=== PATIENT | female | born 1960 | race Caucasian/White ===

== ENCOUNTER 2017-08-24 09:16 | Inpatient (IN) | payer OTHER ==
[2017-08-24] MEDS: IBUPROFEN 800 MG TAB PO (10:34)
[2017-08-24] MEDS: morphine 4 MG/ML VIAL IV ×2 (10:34→13:10)
[2017-08-24] MEDS: ONDANSETRON 4 MG INJ IV (10:34)
[2017-08-24 10:35] LABS: ADD MAN DIFF? NO
[2017-08-24] MEDS: SODIUM CHLORIDE 0.9% 1L BAG IV* (10:35)
[2017-08-24 10:41] LABS: BASOPHIL # 0.1 10^3/ul (0.0-0.1); BASOPHILS % 0.3 % (0.0-2.0); EOSINOPHILS % 0.1 % (0.0-7.0); HEMOGLOBIN 14.6 g/dl (12.0-16.0); LYMPHOCYTES % 6.6 % (15.0-51.0); MEAN CORPUSCULAR HEMOGLOBIN 30.9 pg (29.0-33.0); MEAN CORPUSCULAR HGB CONC 34.8 g/dl (32.0-37.0); MEAN CORPUSCULAR VOLUME 88.8 fl (82.0-101.0); MONOCYTE # 0.8 10^3/ul (0.3-0.9); MONOCYTES % 4.8 % (0.0-11.0); NEUTROPHIL # 13.6 10^3/ul (1.6-7.5); NEUTROPHILS % 87.6 % (39.0-77.0); PLATELET COUNT 287 10^3/UL (140-415); RED BLOOD COUNT 4.73 10^6/ul (4.20-5.40); RED CELL DISTRIBUTION WIDTH 11.9 % (11.5-14.5)
[2017-08-24 10:41] LABS: WHITE BLOOD COUNT 15.5 10^3/ul (4.8-10.8)
[2017-08-24 10:59] LABS: ALANINE AMINOTRANSFERASE 64 IU/L (13-69); ALBUMIN 4.7 g/dl (3.3-4.9); ALBUMIN/GLOBULIN RATIO 1.14; ALKALINE PHOSPHATASE 134 IU/L (42-121); ANION GAP 19 (8-16); ASPARTATE AMINO TRANSFERASE 35 IU/L (15-46); BILIRUBIN,INDIRECT 0.4 mg/dl (0-1.1); BILIRUBIN,TOTAL 0.4 mg/dl (0.2-1.3); BLOOD UREA NITROGEN 16 mg/dl (7-20); CALCIUM 9.7 mg/dl (8.4-10.2); CARBON DIOXIDE 29 mmol/L (21-31); CHLORIDE 100 mmol/L (97-110); CREATININE 0.97 mg/dl (0.44-1.00); GLUCOSE 105 mg/dl (70-220); POTASSIUM 3.8 mmol/L (3.5-5.1); SODIUM 144 mmol/L (135-144); TOTAL PROTEIN 8.8 g/dl (6.1-8.1)
[2017-08-24 11:00] LABS: LACTIC ACID 1.6 mmol/L (0.5-2.0)
[2017-08-24 11:03] LABS: INR 0.95; PROTIME 12.8 Sec (11.9-14.9)
[2017-08-24 11:12] LABS: TROPONIN-I < 0.012 ng/ml (0.000-0.120)
[2017-08-24 11:28] LABS: ADD UMIC YES; UR ASCORBIC ACID NEGATIVE (NEGATIVE); UR BILIRUBIN (Dip) NEGATIVE (NEGATIVE); UR BLOOD (Dip) 1+ mg/dL (NEGATIVE); UR CLARITY CLEAR (CLEAR); UR COLOR YELLOW (YELLOW); UR GLUCOSE (Dip) NEGATIVE (NEGATIVE); UR KETONES (Dip) NEGATIVE (NEGATIVE); UR LEUKOCYTE ESTERASE (Dip) TRACE Leu/ul (NEGATIVE); UR NITRITE (Dip) NEGATIVE (NEGATIVE); UR RBC 7 /HPF (0-5); UR SPECIFIC GRAVITY (Dip) 1.013 (1.003-1.030); UR TOTAL PROTEIN (Dip) NEGATIVE (NEGATIVE); UR UROBILINOGEN (Dip) NEGATIVE (NEGATIVE); UR WBC 5 /HPF (0-5)
[2017-08-24] MEDS ORDERED: ACETAMINOPHEN 325 MG TAB PO (13:00)
[2017-08-24] MEDS ORDERED: ONDANSETRON 4 MG INJ IV ×2 (13:00→18:00)
[2017-08-24 13:35] LABS: LACTIC ACID 0.7 mmol/L (0.5-2.0)
[2017-08-24 16:06] LABS: LACTIC ACID 0.6 mmol/L (0.5-2.0)
[2017-08-24 17:12] LABS: CSF RBC 0 /uL (0-0); CSF WBC 4 /cmm (0-10)
[2017-08-24 17:14] LABS: CSF RBC 0 /uL (0-0); CSF WBC 5 /cmm (0-10)
[2017-08-24] MEDS: VANCOMYCIN 1 GM (PMX) 250 ML IVPB (17:44)
[2017-08-24] MEDS: CEFTRIAXONE 1 GM/50 ML (PMX) 50 ML IVPB (17:44)
[2017-08-24] MEDS ORDERED: VANCOMYCIN IV PER PHARMACY XX (18:00)
[2017-08-24] MEDS ORDERED: NACL 0.9% 3 ML SYG IV (18:00)
[2017-08-24] MEDS ORDERED: hydrALAzine 20 MG INJ IV (18:00)
[2017-08-24 18:06] LABS: CSF CLARITY CLEAR; CSF VOLUME 3.5 ml
[2017-08-24 18:06] LABS: CSF COLOR COLORLESS
[2017-08-24 18:07] LABS: CSF#TUBE COUNT TUBE#4; CSF#TUBES REC'D 4
[2017-08-24 18:15] LABS: CSF CLARITY CLEAR; CSF COLOR COLORLESS; CSF VOLUME 3.5 ml; CSF#TUBE COUNT TUBE#1; CSF#TUBES REC'D 4
[2017-08-24 18:19] LABS: TOTAL PROTEIN,CSF 56 mg/dl (12-60)
[2017-08-24 18:19] LABS: GLUCOSE,CSF 63 mg/dl (50-80)
[2017-08-24] MEDS: AMPICILLIN 2 GM/NS (PMX) 100 ML IVPB ×2 (20:03→21:30)
[2017-08-24] MEDS: morphine 2 MG INJ IV (20:13)
[2017-08-24] MEDS: VANCOMYCIN 500MG/NS (PMX) 100 ML IVPB (22:03)
[2017-08-24] MEDS: D5W-0.45 NACL + KCL 20 MEQ 1,000 ML IV (22:04)
[2017-08-24] MEDS: HYDROCODONE/APAP (5/325) TAB PO (22:37)
[2017-08-25] MEDS: morphine 2 MG INJ IV ×2 (01:17→09:05)
[2017-08-25] MEDS: AMPICILLIN 2 GM/NS (PMX) 100 ML IVPB ×4 (01:17→12:59)
[2017-08-25] MEDS: CEFTRIAXONE 2 GM/50 ML (PMX) 50 ML IVPB ×3 (04:38→20:46)
[2017-08-25 05:55] LABS: ADD MAN DIFF? NO
[2017-08-25 06:02] LABS: WHITE BLOOD COUNT 11.8 10^3/ul (4.8-10.8)
[2017-08-25 06:02] LABS: BASOPHILS % 0.3 % (0.0-2.0); EOSINOPHILS # 0.1 10^3/ul (0.0-0.5); EOSINOPHILS % 0.4 % (0.0-7.0); HEMATOCRIT 37.4 % (37.0-47.0); HEMOGLOBIN 12.8 g/dl (12.0-16.0); LYMPHOCYTES # 1.3 10^3/ul (0.8-2.9); LYMPHOCYTES % 10.6 % (15.0-51.0); MEAN CORPUSCULAR HEMOGLOBIN 31.3 pg (29.0-33.0); MEAN CORPUSCULAR HGB CONC 34.2 g/dl (32.0-37.0); MEAN CORPUSCULAR VOLUME 91.4 fl (82.0-101.0); MEAN PLATELET VOLUME 11.3 fl (7.4-10.4); MONOCYTE # 0.9 10^3/ul (0.3-0.9); MONOCYTES % 7.2 % (0.0-11.0); NEUTROPHIL # 9.6 10^3/ul (1.6-7.5); NEUTROPHILS % 81.2 % (39.0-77.0); PLATELET COUNT 221 10^3/UL (140-415); RED BLOOD COUNT 4.09 10^6/ul (4.20-5.40); RED CELL DISTRIBUTION WIDTH 11.9 % (11.5-14.5)
[2017-08-25] MEDS: D5W-0.45 NACL + KCL 20 MEQ 1,000 ML IV (06:06)
[2017-08-25] MEDS: VANCOMYCIN 1 GM (PMX) 250 ML IVPB (06:30)
[2017-08-25 06:37] LABS: ANION GAP 11 (8-16); BLOOD UREA NITROGEN 7 mg/dl (7-20); CALCIUM 8.2 mg/dl (8.4-10.2); CARBON DIOXIDE 29 mmol/L (21-31); CHLORIDE 107 mmol/L (97-110); CHOL/HDL RATIO 3.5 RATIO; CHOLESTEROL 117 mg/dl (100-200); CREATININE 0.63 mg/dl (0.44-1.00); GLUCOSE 94 mg/dl (70-220); HDL CHOLESTEROL 33 mg/dl (35-98); LDL CHOLESTEROL,CALCULATED 66 mg/dl; MAGNESIUM 1.9 mg/dl (1.7-2.5); PHOSPHORUS 2.3 mg/dl (2.5-4.9); POTASSIUM 3.9 mmol/L (3.5-5.1); SODIUM 143 mmol/L (135-144); TRIGLYCERIDES 88 mg/dl (0-149)
[2017-08-25 07:26] LABS: HEMOGLOBIN A1C 5.5 % (0-5.9)
[2017-08-25] MEDS: IOHEXOL 300MG/ML 150 ML BTL (11:40)
[2017-08-25] MEDS: SOD CHLORIDE 0.9% 100 ML (11:40)
[2017-08-25] MEDS: ACETAMINOPHEN 325 MG TAB PO (12:01)
[2017-08-25] MEDS: DEXAMETHASONE 4 MG/ML 1 ML INJ IV ×2 (13:51→22:30)
[2017-08-25] MEDS: morphine LIQ (10 MG/5 ML) CUP PO ×2 (13:55→22:36)
[2017-08-25] MEDS: HYDROCODONE/APAP (5/325) TAB PO (18:32)
[2017-08-26] MEDS: DEXAMETHASONE 4 MG/ML 1 ML INJ IV ×3 (06:03→22:38)
[2017-08-26] MEDS: morphine LIQ (10 MG/5 ML) CUP PO ×2 (08:44→20:40)
[2017-08-26] MEDS: CEFTRIAXONE 2 GM/50 ML (PMX) 50 ML IVPB ×2 (08:47→20:40)
[2017-08-26] MEDS: DOCUSATE SODIUM 100 MG CAP PO (22:53)
[2017-08-26] MEDS: HYDROCODONE/APAP (5/325) TAB PO (22:56)
[2017-08-27] MEDS: DEXAMETHASONE 4 MG/ML 1 ML INJ IV ×3 (05:51→21:36)
[2017-08-27] MEDS: CEFTRIAXONE 2 GM/50 ML (PMX) 50 ML IVPB ×2 (08:42→21:36)
[2017-08-27] MEDS: morphine LIQ (10 MG/5 ML) CUP PO (12:56)
[2017-08-27] MEDS: MAGNESIUM HYDROXIDE 30ML CUP PO (13:50)
[2017-08-28] MEDS: HYDROCODONE/APAP (5/325) TAB PO ×2 (02:07→09:34)
[2017-08-28] MEDS: DEXAMETHASONE 4 MG/ML 1 ML INJ IV (05:44)
[2017-08-28] MEDS: CEFTRIAXONE 2 GM/50 ML (PMX) 50 ML IVPB (09:00)
== END 2017-08-28 13:50 | disposition home or self-care (01) | DRG 871 ==
LOC: E/R 09:16 → PP2 12:50
PROC: 009U3ZX Drainage of Spinal Canal, Percutaneous Approach, Diagnostic (ICD-10-PCS; principal; 2017-08-24)
DX: A41.9 Sepsis, unspecified organism (principal); G03.0 Nonpyogenic meningitis; N39.0 Urinary tract infection, site not specified; I10 Essential (primary) hypertension; E78.5 Hyperlipidemia, unspecified; J03.90 Acute tonsillitis, unspecified; E66.9 Obesity, unspecified; Z68.32 Body mass index [BMI] 32.0-32.9, adult
CPT/HCPCS: 36415; 70450; 70491; 71045; 72125; 80048; 80053; 80061; 81001; 82945; 83036; 83605; 83735; 84100; 84157; 84484; 85025; 85610; 85730; 87040; 87070; 87086; 89051; 93005; 96374; 96375; 96376; 99291-25